=== PATIENT | male | born 1980 | race Caucasian/White ===

== ENCOUNTER 2018-09-26 02:47 | Emergency (ER) | payer BC, MEDICAID ==
[~2018-09-26] VITALS: Ht 180.3 cm; Wt 94.3 kg
--- NOTE | 2018-09-26 03:20 | NUR ---
CALLED IN WAITING ROOM, NO ANWSER.
[2018-09-26 03:27] VITALS: BP 150/85
[2018-09-26] MEDS ORDERED: HYDROCODONE/APAP 5/325MG 1 EACH TABLET ONE (04:29)
[2018-09-26] MEDS ORDERED: HYDROCODONE/APAP 5/325MG 1 EACH TABLET PO ONE (04:30)
== END 2018-09-26 05:12 | disposition home or self-care (01) ==
LOC: ER 02:50
DX: S42.251A Displaced fracture of greater tuberosity of right humerus, initial encounter for closed fracture (principal); W18.09XA Striking against other object with subsequent fall, initial encounter; Y93.89 Activity, other specified; Y92.89 Other specified places as the place of occurrence of the external cause; Y99.8 Other external cause status
CPT/HCPCS: 73030-TC